=== PATIENT | female | born 1995 | race African-American/Black ===

== ENCOUNTER 2017-11-01 17:32 | Emergency (ER) | payer MEDICAID ==
[~2017-11-01] VITALS: Ht 170.2 cm; Wt 46.0 kg
[2017-11-01 18:15] VITALS: BP 114/66
== END 2017-11-02 00:45 | disposition left against medical advice (07) ==
LOC: ER 18:50
DX: R10.9 Unspecified abdominal pain (principal); Z53.21 Procedure and treatment not carried out due to patient leaving prior to being seen by health care provider